=== PATIENT | female | born 2000 | race Caucasian/White ===

== ENCOUNTER 2023-02-16 12:08 | Emergency (ER) | payer OTHER, SELFPAY ==
[2023-02-16] VITALS (16 sets, daily range): BP systolic 106–129; BP diastolic 58–85; PULSE 114–135; RESP 20; TEMP 36.5; O2SAT 94–99; BMI 39.1
--- NOTE | 2023-02-16 12:42 | ED.GENADULT ---
HPI - General Adult General Time Seen by Provider: 12:42 Date Seen: 02/16/23 Chief complaint: Urogenital Problems, Female Stated complaint: Fever, back pain Time Seen by Provider: 02/16/23 12:39 Source: patient and RN notes reviewed Mode of arrival: ambulatory Limitations: no limitations History of Present Illness HPI narrative: This 22-year-old female is coming into the ER with concern of possible kidney infection. She awoke earlier this morning with low back pain, some diarrhea and vomiting. She had a temperature up to 102. Took ibuprofen around 10:00 a.m. this morning. She is still having some low back pain. She has a history of pyelonephritis in 5th grade. No respiratory symptoms. She just completed her menstrual cycle, has not been sexually active for a while prior to this. Related Data Home Medications Medication Instructions Recorded Confirmed atorvastatin 10 mg tablet 10 mg PO DAILY 02/16/23 02/16/23 escitalopram oxalate 5 mg tablet 5 mg PO DAILY 02/16/23 02/16/23 (Lexapro) glipizide 10 mg tablet 10 mg PO BID 02/16/23 02/16/23 insulin glargine 100 unit/mL (3 40 unit subcut DAILY 02/16/23 02/16/23 mL) subcutaneous pen (Lantus Solostar U-100 Insulin) lisinopril 2.5 mg tablet 2.5 mg PO DAILY 02/16/23 02/16/23 metformin 1,000 mg 24 hr 2,000 mg PO DAILY 02/16/23 02/16/23 tablet,extended release semaglutide 0.25 mg or 0.5 mg (2 0.5 mg subcut QWEEK 02/16/23 02/16/23 mg/3 mL) subcutaneous pen injector (Ozempic) Previous Rx's Medication Instructions Recorded cephalexin 500 mg tablet 500 mg PO TID #20 tabs 02/16/23 Allergies Allergy/AdvReac Type Severity Reaction Status Date / Time Penicillins Allergy Verified 02/16/23 12:33 adhesive AdvReac Rash Verified 02/16/23 12:33 Review of Systems Status of ROS: Reports: 6 or more systems reviewed and unremarkable except as noted in History and below PFSH PFSH Social History Smoking Status: Unknown if ever smoked Exam Const: Vital Signs, click to edit/add: Vital Signs - 24 hr 02/16/23 12:25 02/16/23 12:42 02/16/23 12:46 Temperature 97.7 F Pulse Rate 131 H Pulse Rate [Pulse Oximeter] 135 H Respiratory Rate 20 Blood Pressure 111/79 Blood Pressure [Ri ght Upper Arm] 117/77 Pulse Oximetry 96 94 96 Oxygen Delivery Me thod Room Air 02/16/23 13:00 02/16/23 13:01 02/16/23 13:30 Temperature Pulse Rate 126 H 125 H 118 H Pulse Rate [Pulse Oximeter] Respiratory Rate Blood Pressure 129/85 Blood Pressure [Ri ght Upper Arm] Pulse Oximetry 96 98 94 Oxygen Delivery Me thod 02/16/23 13:34 02/16/23 14:00 02/16/23 14:04 Temperature Pulse Rate 118 H 123 H 129 H Pulse Rate [Pulse Oximeter] Respiratory Rate Blood Pressure Blood Pressure [Ri ght Upper Arm] Pulse Oximetry 98 98 97 Oxygen Delivery Me thod 02/16/23 14:30 02/16/23 14:34 02/16/23 14:46 Temperature Pulse Rate 118 H 121 H 121 H Pulse Rate [Pulse Oximeter] Respiratory Rate Blood Pressure 111/58 L Blood Pressure [Ri ght Upper Arm] Pulse Oximetry 94 99 97 Oxygen Delivery Me thod 02/16/23 14:47 02/16/23 15:00 02/16/23 15:01 Temperature Pulse Rate 114 H 124 H 120 H Pulse Rate [Pulse Oximeter] Respiratory Rate Blood Pressure 106/62 Blood Pressure [Ri ght Upper Arm] Pulse Oximetry 97 96 95 Oxygen Delivery Me thod Room Air 02/16/23 15:15 Temperature Pulse Rate 123 H Pulse Rate [Pulse Oximeter] Respiratory Rate Blood Pressure Blood Pressure [Ri ght Upper Arm] Pulse Oximetry 97 Oxygen Delivery Me thod Very pleasant 22-year-old female is bundled up in blankets in exam room 3. She is alert, interactive, very pleasant looks like she does not feel well. Sclera clear, cheeks are flushed but no facial rash. Able speak in complete sentences. Neck is supple, no cervical adenopathy or thyromegaly masses or nodules. Lungs are clear, good air entry, no wheezing or crackles. CV fast but regular, no murmur, normal S1-S2 no S3-S4. Abdomen is soft, nontender, nondistended, no organomegaly. Documenting provider has reviewed patient's vital signs: yes Course Course ED Course: This patient is presenting with a history concerning for infectious etiology. Certainly urologic causes are at consideration, she will try to provide us urinalysis as soon as possible. We will do the triple viral swab, she understands that is possible it could be a viral infection such as COVID or influenza. She is tachycardic, was febrile earlier, will monitor here, consider sepsis if need be. Will get full complement of labs including blood cultures. Reevaluation(s) Time of Reevaluation #1: 14:33 Reevaluation #1: Have reviewed with patient that the urinalysis is showing squamous epithelial cells but there are significant bacteria. Did discuss the option of doing abdominal imaging. We went over pros and cons of this. She has opted to forego abdominal imaging which I think is reasonable at this time. I will treat for urinary tract infection/pyelonephritis. I have ordered 2 g IV Rocephin. She understands that if she clinically is not improving at home, there are any concerns for worsening that she does need to be re-evaluated. She is allergic to penicillins but tells me that she has tolerated cephalosporins fine in the past. We will need to wait for urine culture on her. She really clinically seems to have a urinary tract infection, there certainly appears to be contamination with the urine specimen. Vital Signs Vital signs: Initial Vital Signs Temperature 97.7 F 02/16/23 12:25 Temperature Source Temporal Artery Scan 02/16/23 12:25 Pulse Rate 135 H 02/16/23 12:25 Pulse Rhythm Regular 02/16/23 12:25 Respiratory Rate 20 02/16/23 12:25 Blood Pressure 117/77 02/16/23 12:25 Blood Pressure Mean 90 02/16/23 12:25 Blood Pressure Position Sitting 02/16/23 12:25 Pulse Oximetry 96 02/16/23 12:25 Vital Signs Temperature 97.7 F 02/16/23 12:25 Pulse Rate 135 H 02/16/23 12:25 Respiratory Rate 20 02/16/23 12:25 Blood Pressure 117/77 02/16/23 12:25 Pulse Oximetry 96 02/16/23 12:25 Temperature 97.7 F 02/16/23 12:25 Pulse Rate 123 H 02/16/23 15:15 Respiratory Rate 20 02/16/23 12:25 Blood Pressure 106/62 02/16/23 15:01 Pulse Oximetry 97 02/16/23 15:15 Oxygen Delivery Method Room Air 02/16/23 14:47 Medications Administered Medications: Discontinued Medications Generic Name Dose Route Start Last Admin Trade Name Freq PRN Reason Stop Dose Admin Sodium Chloride 1,000 mls @ 1,000 mls/hr 02/16/23 12:47 02/16/23 14:45 0.9 % Sodium Chloride 1000 Ml IV 02/16/23 13:46 Infused .Q1H JERRY Infusion Ceftriaxone Sodium 2 gm/ 100 mls @ 200 mls/hr 02/16/23 14:33 02/16/23 15:27 Sodium Chloride IVPB 02/16/23 14:34 Infused ONCE ONE Infusion Ketorolac Tromethamine 15 mg 02/16/23 12:46 02/16/23 13:04 Ketorolac 15 Mg/Ml Inj IVP 02/16/23 12:47 15 mg ONCE ONE Administration Medical Decision Making Lab Data Lab results reviewed: Yes I reviewed the patient's lab results Labs: Lab Results 02/16/23 02/16/23 Range/Units 12:40 13:00 WBC 8.79 (4.50-11.00) K/uL RBC 4.39 (4.00-5.20) m/uL Hgb 12.9 (12.0-16.0) gm/dL Hct 37.8 (33.0-51.0) % MCV 86 (80-100) fL MCH 29 (26-34) pg MCHC 34 (32-36) gm/dL RDW Coeff of Kevon 11.6 (11.5-15.5) % Plt Count 182 (140-440) K/uL Neut % (Auto) 85.1 H (42.0-72.0) % Lymph % (Auto) 10.4 L (20-44) % [place] % (Auto) 3.2 (0.0-11.0) % Eos % (Auto) 0.9 (0.0-7.0) % Baso % (Auto) 0.1 (0.0-3.0) % Neut # (Auto) 7.50 H (1.7-7.0) K/uL Lymph # (Auto) 0.90 (0.90-2.90) K/uL [place] # (Auto) 0.30 (0.00-0.90) K/UL Eos # (Auto) 0.08 (0.00-0.50) K/uL Baso # (Auto) 0.01 (0.00-0.30) K/uL Abs Immat Gran (auto) 0.03 (0.00-0.30) K/uL Imm/Tot Granulo (auto) 0.3 % Sodium 134 L (135-149) mmol/L Potassium 3.7 (3.6-5.1) mmol/L Chloride 100 (96-114) mmol/L Carbon Dioxide 22 (20-32) mmol/L Anion Gap 12 (7-15) mEq/L BUN 11 (5-24) mg/dL Creatinine 0.6 (0.5-1.5) mg/dL Estimated Creat Clear 130.10 Estimated GFR 128 ml/min Glucose 254 H (60-115) mg/dL Lactate 2.2 H (0.5-1.9) mmol/L Calcium 8.2 L (8.4-10.6) mg/dL Total Bilirubin 0.7 (0.1-1.5) mg/dL AST 36 H (12-35) U/L ALT 46 H (4-35) U/L Alkaline Phosphatase 52 (40-150) U/L C-Reactive Protein 2.4 H (0.5-1.0) mg/dL Total Protein 7.0 (6.0-8.3) g/dL Albumin 4.3 (3.3-5.0) g/dL Procalcitonin 0.19 (<0.50) ng/mL Urine Color Yellow (Yellow) Urine Appearance Cloudy A (Clear) Urine pH 5.5 (5.0-8.5) Ur Specific [place] >= 1.030 (1.000-1.030) Urine Protein 3+ A (Negative) Urine Glucose (UA) 1+ A (Negative) Urine Ketones Negative (Negative) Urine Blood Negative (Negative) Urine Nitrite Negative (Negative) Urine Bilirubin Negative (Negative) Urine Urobilinogen 0.2 (0.2-1.0) Ur Leukocyte Esterase Negative (Negative) Urine RBC 2-5 A (0-2) Urine WBC 5-10 A (0-5) Ur Squamous Epith Cells Moderate A (None-Few) Urine Bacteria Moderate A (None) SARS-CoV-2 (PCR) Negative SARS-CoV-2 (Negative) Influenza Type A (PCR) Negative PCR FLU A (Negative) Influenza Type B (PCR) Negative PCR FLU B (Negative) RSV (PCR) Negative PCR RSV (Negative) Critical Care Time Critical Care Time Critical Care Time: No Discharge Plan Discharge Clinical Impression: Urinary tract infection Patient Disposition: Home, Self-Care Condition: Stable Instructions: Urinary Tract Infection in Women (ED) Additional Instructions: Can use Tylenol and ibuprofen for any fever management, follow bottle directions for dosing. Start oral antibiotics tomorrow morning, take as prescribed. Encourage you to drink plenty of fluids to stay hydrated. If you are not improving in the next couple days, feel you are worsening at any point, develop abdominal pain or vomiting, cannot take oral antibiotics for any reason, do need to be re-evaluated. Activity Level: Activity as Tolerated Prescriptions: New cephalexin 500 mg tablet 500 mg PO TID Qty: 20 0RF No Action metformin 1,000 mg tablet,ER rogers.retention 24 hr 2,000 mg PO DAILY glipizide 10 mg tablet 10 mg PO BID lisinopril 2.5 mg tablet 2.5 mg PO DAILY Ozempic 0.25 mg or 0.5 mg (2 mg/3 mL) pen injector 0.5 mg subcut QWEEK insulin glargine [Lantus Solostar U-100 Insulin] 100 unit/mL (3 mL) insulin pen 40 unit subcut DAILY atorvastatin 10 mg tablet 10 mg PO DAILY escitalopram oxalate [Lexapro] 5 mg tablet 5 mg PO DAILY Follow Up/Referrals: Zamzam York, HOME COORDINATOR [Primary Care Provider] - Stand Alone Forms: MyHealth Info Instructions
[2023-02-16 12:49] LABS: Appearance Urine Cloudy (Clear); Bilirubin Urine Negative (Negative); Blood Urine Negative (Negative); Color Urine Yellow (Yellow); Glucose Urine 1+ (Negative); Ketones Urine Negative (Negative); Leukocyte Esterase Urine Negative (Negative); Nitrite Urine Negative (Negative); Protein Urine 3+ (Negative); Specific Gravity Urine >= 1.030 (1.000-1.030); Urobilinogen Urine 0.2 (0.2-1.0); pH Urine 5.5 (5.0-8.5)
[2023-02-16 12:58] LABS: Bacteria Urine Moderate; Squamous Epithelial Cell Urine Moderate (None-Few)
[2023-02-16] MEDS: 0.9 % SODIUM CHLORIDE 1000 ml 1,000 ML IV (13:04)
[2023-02-16] MEDS: KETOROLAC 15 MG/ML inj IVP (13:04)
[2023-02-16 13:06] LABS: Lactate* 2.2 mmol/L (0.5-1.9)
[2023-02-16 13:12] LABS: Basophils Absolute Auto 0.01 K/uL (0.00-0.30); Basophils Percent Auto 0.1 % (0.0-3.0); Eosinophils Absolute Auto 0.08 K/uL (0.00-0.50); Eosinophils Percent Auto 0.9 % (0.0-7.0); Hematocrit 37.8 % (33.0-51.0); Hemoglobin* 12.9 gm/dL (12.0-16.0); Immature Granulocytes Abs Auto 0.03 K/uL (0.00-0.30); Immature Granulocytes Pct Auto 0.3 %; Lymphocytes Percent Auto 10.4 % (20-44); Mean Corpuscular HGB Conc 34 gm/dL (32-36); Mean Corpuscular Hemoglobin 29 pg (26-34); Mean Corpuscular Volume 86 fL (80-100); Monocytes Percent Auto 3.2 % (0.0-11.0); Neutrophils Percent Auto 85.1 % (42.0-72.0); Platelet Count* 182 K/uL (140-440); RDW Coefficient of Variation % 11.6 % (11.5-15.5); Red Blood Count 4.39 m/uL (4.00-5.20); White Blood Count* 8.79 K/uL (4.50-11.00)
[2023-02-16 13:14] LABS: Slide Review Reflex No
[2023-02-16 13:36] LABS: Albumin* 4.3 g/dL (3.3-5.0); Chloride* 100 mmol/L (96-114)
[2023-02-16 13:37] LABS: Potassium* 3.7 mmol/L (3.6-5.1); Sodium* 134 mmol/L (135-149)
[2023-02-16 13:39] LABS: Bilirubin Total* 0.7 mg/dL (0.1-1.5); Creatinine* 0.6 mg/dL (0.5-1.5); Estimated Glomerular Filt Rate 128 ml/min
[2023-02-16 13:40] LABS: Alanine Aminotransferase* 46 U/L (4-35); Alkaline Phosphatase* 52 U/L (40-150); Anion Gap 12 mEq/L (7-15); Aspartate Amino Transferase* 36 U/L (12-35); Blood Urea Nitrogen* 11 mg/dL (5-24); Calcium* 8.2 mg/dL (8.4-10.6); Carbon Dioxide* 22 mmol/L (20-32); Glucose* 254 mg/dL (60-115)
[2023-02-16 13:43] LABS: C Reactive Protein* 2.4 mg/dL (0.5-1.0)
[2023-02-16 13:48] LABS: PCR FLU A Negative PCR FLU A (Negative); PCR FLU B Negative PCR FLU B (Negative); PCR RSV Negative PCR RSV (Negative)
[2023-02-16 13:53] LABS: SARS PCR* Negative SARS-CoV-2 (Negative)
[2023-02-16 13:56] LABS: Procalcitonin* 0.19 ng/mL (<0.50)
[2023-02-16] MEDS: cefTRIAXone 2 GM in 0.9 % SODIUM CHLORIDE Mini-bag 100 ML IVPB (14:45)
== END 2023-02-16 15:29 | disposition home or self-care (01) ==
PROVIDERS: Emergency Provider Family Medicine; PCP Family Medicine
DX: N39.0 Urinary tract infection, site not specified (principal)
CPT/HCPCS: 36415; 80053; 81001; 83605; 84145; 85025; 86140; 87040; 87086; 87631; 94761; 96365; 96375; 99284; J0696; J1885; J7030